=== PATIENT | male | born 1960 | race Caucasian/White ===

== ENCOUNTER 2023-03-02 01:56 | Day surgery (SDC) | payer OTHER, SELFPAY ==
[2023-02-03 14:11] VITALS: BMI 38.4
--- NOTE | 2023-02-25 12:28 | SUR.PREOP ---
Patient called regarding upcoming procedure. Left voicemail with procedure date and time and contact for questions.
--- NOTE | 2023-02-28 15:54 | PM.HPGS ---
History of Present Illness History of Present Illness Consent: Risks, benefits, and alternatives have been discussed and questions answered. Patient agrees to proceed with procedure. Chief complaint: history of colon polyps Narrative: Jamie Charles is a 62 year old male with hx of polyps, who is referred for colon cancer screening. 3 years ago he had polyps removed in [place]. Review of Systems Review of Systems: All systems reviewed & are unremarkable except as noted in HPI and below PMFSH Social History Social History Smoking packs per day: 1 Smoking cigarettes per day: 20.0 Years smoked: 3 Smoking pack-years: 3.00 Smoking status: Former smoker Tobacco type: cigarettes Alcohol intake: current Drinks per week: 4 Substance use type: does not use Living arrangements: with family Spiritual care concerns: No Meds Home Medications and Allergies Home Medications Medication Instructions Recorded Confirmed Type chlorthalidone 25 mg tablet 25 mg PO DAILY 02/03/23 03/02/23 History fluticasone propionate 50 1 spray intranasal DAILY 02/03/23 03/02/23 History mcg/actuation nasal spray,suspension potassium chloride 10 mEq 20 meq PO DAILY 02/03/23 03/02/23 History tablet,extended release pravastatin 40 mg tablet 40 mg PO DAILY 02/03/23 03/02/23 History Allergies Allergy/AdvReac Type Severity Reaction Status Date / Time No Known Allergies Allergy Verified 03/02/23 06:50 Exam Const: General: alert Nutritional Appearance: obese Orientation/consciousness: patient oriented x3 Resp: Auscultation: clear to auscultation bilaterally Cardio: Rhythm: regular rhythm GI: GI Palp: Yes Soft to palpation and No Tenderness to palpation present (GI) Neuro: General: patient oriented x3 Assessment and Plan Assessment and plan (1) Colon cancer screening: Code(s): Z12.11 - Encounter for screening for malignant neoplasm of colon Status: Acute Assessment and Plan: Colonoscopy with possible biopsy or polypectomy or cautery or injection of substances.
[2023-03-02 06:42] VITALS: BP 118/89; PULSE 88; RESP 18; TEMP 35.8; O2SAT 98; BMI 39.4
[2023-03-02] MEDS: LACTATED RINGERS 1,000 ML 150 ML IV CONT (06:58)
--- NOTE | 2023-03-02 07:28 | P.PNAN_ITS ---
Anes - Initial Pre Proc Eval Procedure: Operation Date: 03/02/23 08:00 Proposed Procedures p Colonoscopy - Phillip Hodgson MD Date/Time: 03/02/23 07:28 Surgeon: Phillip Hodgson MD Pre Op Diagnosis: history of colon polyps Patient Data Age: 62 Gender: M Height: 1.68 m Weight: 110.9 kg Last Vital Signs Temp 96.5 F L 03/02/23 06:42 Pulse 88 03/02/23 06:42 Resp 18 03/02/23 06:42 BP 118/89 03/02/23 06:42 Pulse Ox 98 03/02/23 06:42 O2 Del Method Room Air 03/02/23 06:42 Allergies Allergy/AdvReac Type Severity Reaction Status Date / Time No Known Allergies Allergy Verified 03/02/23 06:50 Home Medications Medication Instructions Recorded Confirmed Type chlorthalidone 25 mg tablet 25 mg PO DAILY 02/03/23 03/02/23 History fluticasone propionate 50 1 spray intranasal DAILY 02/03/23 03/02/23 History mcg/actuation nasal spray,suspension potassium chloride 10 mEq 20 meq PO DAILY 02/03/23 03/02/23 History tablet,extended release pravastatin 40 mg tablet 40 mg PO DAILY 02/03/23 03/02/23 History Patient hx anesthesia problems: none Family hx anesthesia problems: none Results Review: All pre-operative results and documents have been reviewed as part of the pre- operative evaluation. [facility] Social History Social History Smoking packs per day: 1 Smoking cigarettes per day: 20.0 Years smoked: 3 Smoking pack-years: 3.00 Smoking status: Former smoker Tobacco type: cigarettes Alcohol intake: current Drinks per week: 4 Substance use type: does not use Living arrangements: with family Spiritual care concerns: No Anes - Eval Final PreProcedure Day of Procedure 03/02/23 07:28 Patient weight: morbidly obese Heart: regular rate and rhythm Lungs: clear to auscultation Airway: Mallampati scale class II Neurological: alert and oriented Last oral intake: >/= 8 hours ASA classification: III Emergent: no Anesthetic plan: proceed Anesthesia type and monitoring: general GIVS and standard monitoring Results Review: All pre-operative results and documents have been reviewed as part of the pre- operative evaluation. Informed Consent: The patient's anesthetic plan and its attendant risks and benefits were discussed with the patient/family/POA. Questions were solicited and answers provided to the satisfaction of the patient/family/POA.
[2023-03-02 08:13] VITALS: BP 128/85; PULSE 73; RESP 22; O2SAT 95
[2023-03-02 08:23] VITALS: BP 136/86; PULSE 71; RESP 19; O2SAT 93
[2023-03-02 08:33] VITALS: BP 138/92; PULSE 72; RESP 18; O2SAT 97
== END 2023-03-02 08:39 | disposition home or self-care (01) ==
PROVIDERS: Visit Provider Internal Medicine Gastroenterology
PROC: 0DJD8ZZ Inspection of Lower Intestinal Tract, Via Natural or Artificial Opening Endoscopic (ICD-10-PCS; CPT 45378; principal; 2023-03-02 08:00)
DX: Z12.11 Encounter for screening for malignant neoplasm of colon (principal); K62.1 Rectal polyp; E66.01 Morbid (severe) obesity due to excess calories; Z68.39 Body mass index [BMI] 39.0-39.9, adult; Z87.891 Personal history of nicotine dependence
CPT/HCPCS: 45380; 88305; J2704; J7120